=== PATIENT | female | born 1940 | race Caucasian/White ===

== ENCOUNTER 2024-01-13 21:50 | Emergency (ER) | payer OTHER ==
[~2024-01-13] VITALS: Ht 149.9 cm; Wt 41.0 kg
[~2024-01-13 21:50] MED LIST: APIX5TAB PO; ATOR10TA69 PO; BACL-141 PO; HYDR-4001 PO; OMEP20CA14 PO; TACR1CAP2 PO
[2024-01-13 21:51] VITALS: O2SAT 95
[2024-01-13 22:15] VITALS: TEMP 98.1
[2024-01-13 23:09] LABS: BASOPHILS % 1.2 % (0.0-2.0); EOSINOPHILS % 2.2 % (0.0-5.0); HEMATOCRIT. 39.5 % (36.0-48.0); HEMOGLOBIN. 13.2 g/dL (12.0-16.0); LYMPHOCYTES % 24.5 % (20.0-50.0); MEAN CORPUSCULAR HEMOGLOBIN 33.5 pg (28.0-32.0); MEAN CORPUSCULAR HGB CONC 33.5 g/dL (31.0-37.0); MEAN PLATELET VOLUME 8.4 fl (7.4-10.4); MONOCYTES % 7.2 % (2.0-8.0); NEUTROPHILS % 64.9 % (40.0-76.0); PLATELET 175 x1000/uL (130-400); RED BLOOD CELL COUNT 3.95 mill/uL (4.2-5.4); RED CELL DISTRIBUTION WIDTH 15.3 % (11.6-14.6)
[2024-01-13 23:30] LABS: ALANINE AMINOTRANSFERASE 25 IU/L (10-49); ALBUMIN 4.2 g/dL (3.2-4.8); ASPARTATE AMINOTRANSFERASE 26 IU/L (<34); BILIRUBIN TOTAL 0.3 mg/dL (0.1-1.0); CALCIUM 8.3 mg/dL (8.7-10.4); CARBON DIOXIDE 22 mEq/L (21-32); CHLORIDE 102 mEq/L (98-107); CREATININE 3.9 mg/dL (0.6-1.0); GLUCOSE 92 mg/dL (70-105); POTASSIUM 4.7 mEq/L (3.5-5.1); PROTEIN TOTAL 7.5 g/dL (6.0-8.3); SODIUM 136 mEq/L (136-145); TROPONIN I HIGH SENSITIVITY 22 ng/L (3.0-34); UREA NITROGEN BLOOD 75 mg/dL (9-23)
[2024-01-13] MEDS: SODIUM CHLORIDE 0.9% 500 ML IV ONE (23:43)
[2024-01-14 01:21] LABS: TROPONIN I HIGH SENSITIVITY 21 ng/L (3.0-34)
[2024-01-14] MEDS ORDERED: IOHEXOL-350 100 ML BOTTLE ONE (01:26)
[2024-01-14 06:15] VITALS: BP 140/98; PULSE 117; RESP 16
== END 2024-01-14 07:43 | disposition short-term general hospital (02) ==
LOC: ER 21:50 → EDBEDREQTM 01-14 03:37 → EDBEDREQ 01-14 03:37 → EDBEDREQTM 01-14 07:34 → ER 01-14 07:43 → CANBEDREQ 01-14 08:35
DX: R00.0 Tachycardia, unspecified (principal); N19 Unspecified kidney failure; J90 Pleural effusion, not elsewhere classified; I48.91 Unspecified atrial fibrillation; K21.9 Gastro-esophageal reflux disease without esophagitis; I10 Essential (primary) hypertension; I25.2 Old myocardial infarction; J44.9 Chronic obstructive pulmonary disease, unspecified; Z79.899 Other long term (current) drug therapy
CPT/HCPCS: 99291; 80053; 83880; 83605; 85025; 85379; 84484 ×2; 36415 ×2; 71045; 93005; 71275; J7040; Q9967

== ENCOUNTER 2024-05-07 10:16 | Emergency (ER) | payer MEDICARE, OTHER ==
[~2024-05-07] VITALS: Ht 160 cm; Wt 55.0 kg
[2024-05-07 10:28] VITALS: O2SAT 99
[2024-05-07] MEDS: ONDANSETRON HCL 4MG/2ML INJ IV STA (11:30)
[2024-05-07] MEDS: ASPIRIN 81MG TABLET PO ONE (11:30)
[2024-05-07] MEDS: MORPHINE SULFATE 4 MG/ML INJ (FOR IV/IM USE) IV STA (11:31)
[2024-05-07 12:22] LABS: BASOPHILS % 1.9 % (0.0-2.0); EOSINOPHILS % 1.4 % (0.0-5.0); HEMATOCRIT. 36.8 % (36.0-48.0); HEMOGLOBIN. 11.6 g/dL (12.0-16.0); LYMPHOCYTES % 14.2 % (20.0-50.0); MEAN CORPUSCULAR HEMOGLOBIN 31.2 pg (28.0-32.0); MEAN CORPUSCULAR HGB CONC 31.6 g/dL (31.0-37.0); MEAN CORPUSCULAR VOLUME 98.7 fL (81.0-99.0); MEAN PLATELET VOLUME 6.8 fl (7.4-10.4); MONOCYTES % 6.6 % (2.0-8.0); NEUTROPHILS % 75.9 % (40.0-76.0); PLATELET 200 x1000/uL (130-400); RED BLOOD CELL COUNT 3.73 mill/uL (4.2-5.4); RED CELL DISTRIBUTION WIDTH 20.4 % (11.6-14.6); WHITE BLOOD COUNT 5.2 x1000/uL (4.5-11.0)
[2024-05-07 12:27] LABS: CHLORIDE 104 mEq/L (98-107); POTASSIUM 3.5 mEq/L (3.5-5.1); SODIUM 139 mEq/L (136-145)
[2024-05-07 12:28] LABS: CARBON DIOXIDE 23 mEq/L (21-32)
[2024-05-07 12:29] LABS: CALCIUM 7.8 mg/dL (8.7-10.4)
[2024-05-07] MEDS: CEFTRIAXONE 2GM/50ML 50 ML IV ONE (12:29)
[2024-05-07 12:33] LABS: INR 1.5; PROTHROMBIN TIME 16.4 sec (9.6-11.0)
[2024-05-07 12:34] LABS: GLUCOSE 50 mg/dL (70-105); UREA NITROGEN BLOOD 10 mg/dL (9-23)
[2024-05-07 12:49] LABS: TROPONIN I HIGH SENSITIVITY 48 ng/L (3.0-34)
[2024-05-07 15:27] VITALS: BP 126/71; PULSE 69; RESP 15; TEMP 96.9
== END 2024-05-07 15:45 | disposition short-term general hospital (02) ==
LOC: ER 10:16 → CANBEDREQ 13:18 → EDBEDREQ 14:31 → ER 15:45
DX: R07.89 Other chest pain (principal); J44.1 Chronic obstructive pulmonary disease with (acute) exacerbation; I48.91 Unspecified atrial fibrillation; I25.2 Old myocardial infarction; I10 Essential (primary) hypertension; N28.9 Disorder of kidney and ureter, unspecified; Z79.899 Other long term (current) drug therapy; W18.30XA Fall on same level, unspecified, initial encounter; Y93.89 Activity, other specified; Y92.89 Other specified places as the place of occurrence of the external cause; Y99.8 Other external cause status
CPT/HCPCS: 99285; 96365; 96375; 71045; 80048; 83880; 85025; 85610; 84484; 36415; 93005; J0696; J2405; J2270